=== PATIENT | female | born 1960 | race African-American/Black ===

== ENCOUNTER 2017-01-07 22:27 | Emergency (ER) | payer SELFPAY ==
[2017-01-07] MEDS ORDERED: ASPIRIN 81 MG CHEW TAB ONE (22:37)
[2017-01-07] MEDS ORDERED: ASPIRIN 81 MG CHEW TAB PO ONE (22:45)
[2017-01-07 23:01] LABS: BASOPHILS % 1.2 (0.0-1.5); EOSINOPHILS % 3.4 % (0.0-6.8); MEAN CORPUSCULAR HEMOGLOBIN 31.1 pg (28.0-34.0); MEAN CORPUSCULAR VOLUME 98.9 fl (80.0-100.0); MONOCYTES % 4.5 % (0.0-11.0); NEUTROPHILS # 5.1 # k/uL (1.4-7.7)
[2017-01-07] MEDS ORDERED: NITROGLYCERIN 0.4 MG TAB.SUBL SL ONE (23:14)
[2017-01-07] MEDS ORDERED: LORazepam 2 MG/ML VIAL IVP ONE ×2 (23:14→23:17)
[2017-01-07] MEDS ORDERED: LORazepam 2 MG/ML VIAL ONE (23:14)
[2017-01-07 23:15] LABS: eGFR (African) > 60; eGFR (Non-African) > 60
[2017-01-08] MEDS ORDERED: IPRATROPIUM/ALBUTEROL SULFATE 3 ML AMPUL.NEB NEB ONE (01:35)
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
[2017-01-08 02:27] VITALS: BP 116/86
--- NOTE | 2017-01-08 06:50 | Diagnostic Imaging Report ---
CARMENZA TOPETE~ [facility] [address] [facility].[address] [address] ~ ~ ~ ~ Report Submission Date: Jan 07, 2017 11:27:38 PM CDT Patient ~ Study Name: MARGARITO HOLLIS ~ Date: Jan 07, 2017 11:11:59 PM CDT ~ Modality Type: CR Gender: F ~ Description: CHEST : 60 ~ Institution: [facility] Physician: CARMENZA TOPETE ~ ~ ~ ~ Portable chest History: Left chest and arm pain Findings: The lungs are clear. No pleural effusions are observed. Heart size and pulmonary vascularity are normal. Osseous structures are grossly intact. Impression: Normal portable chest. ~ Electronically signed on Jan 07, 2017 11:27:38 PM CDT by: Trace BRIGHT
== END 2017-01-08 01:55 | disposition home or self-care (01) ==
LOC: ED 22:27
DX: R07.89 Other chest pain (principal); I10 Essential (primary) hypertension
CPT/HCPCS: 71010; 80053; 82550; 84484; 85025; 93005; J2060; 99283; S1016

== ENCOUNTER 2018-02-26 23:02 | Emergency (ER) | payer SELFPAY ==
--- NOTE | 2018-02-26 23:09 | ED Physician Documentation ---
General Adult - HISTORIAN Historian: patient - HPI Stated Complaint: left knee swelling and pain Chief Complaint: Lower Extremity Problem Onset: days ago (3) Timing: still present Severity: mild Further Comments: yes (She states three days ago she started to notice the pain in her left knee - denies any injury or other complications. She states she then started to have increasing pain along the lateral side tonight. She has not tried any Ice, or OTC meds for the pain. She did not try elevation. She has no other complaints although she states when she goes to lift her leg it hurts in her back (along the left lateral side) No loss of control of bowel or bladder ) - ROS CONST: no problems CVS/RESP: denies: chest pain, shortness of breath, cough GI/: denies: abdominal pain MS/SKIN/LYMPH: joint pain, leg swelling (left knee ). denies: calf pain NEURO/PSYCH: denies: headache, fainting - PAST HX Past History: none Other History: none Surgeries/Procedures: hysterectomy, other (arm ortho ) Immunizations: referred to PCP Allergies/Adverse Reactions: Allergies Allergy/AdvReac Type Severity Reaction Status Date / Time Penicillins Allergy Intermediate Hives Verified 02/26/18 23:10 lisinopril Allergy Verified 02/26/18 23:10 codeine AdvReac Intermediate Dizziness Verified 02/26/18 23:10 Home Medications: Ambulatory Orders Medication Instructions Recorded NK [NK] 02/26/18 - SOCIAL HX Smoking History: non-smoker Alcohol Use: none Drug Use: none - FAMILY HX Family History: No - VITAL SIGNS Vital Signs: Vital Signs Temp Pulse Resp BP Pulse Ox 116/86 01/08/17 01:55 - REVIEWED ASSESSMENTS Nursing Assessment Reviewed: Yes Vitals Reviewed: Yes ED Results Lab/Radiology - Radiology Radiology Impressions: Three views of the left knee Clinical history: Pain for 3 days. Swelling. Findings: Examination of the left knee in AP, lateral and sunrise views demonstrates degenerative changes with narrowing of the joint space worse medially. There are medial and lateral osteophytes and prominence of the tibial spines. There is no evident fracture or joint effusion. Impression: 1. Degenerative changes. Electronically signed on Feb 26, 2018 11:48:44 PM CDT by: Felix Ramirez General Adult Physical Exam - PHYSICAL EXAM GENERAL APPEARANCE: no distress EENT: eye inspection normal NECK: normal inspection RESPIRATORY: no resp distress, chest non-tender, breath sounds normal CVS: reg rate & rhythm, heart sounds normal, equal pulses, no murmur ABDOMEN: soft, no organomegaly, normal bowel sounds, no distension, non-tender BACK: normal inspection, no CVA tenderness SKIN: warm/dry, normal color EXTREMITIES: non-tender, other (left knee with swelling. No remarkable redness noted. No pain with flexion of foot. No observed abnormalities with calf or posterior knee. Pain with palpation on right lateral side of left knee. She describes pain with leg abduction on left lower back . ) NEURO: oriented X3, CN's nml as tested, motor nml, sensation nml, mood/affect nml, cognition normal Discharge Clincal Impression: Left knee pain Qualifiers: Chronicity: acute Qualified Code(s): M25.562 - Pain in left knee Referrals: Carina Ahuja MD [Primary Care Provider] - 2 Days Additional Instructions: 1. Ibuprofen or Tylenol as directed for pain 2. Elevate with Ice 3. Monitor for increased swelling or pain - return to ER 4. contact PCP in AM for follow up - possible MRI or ortho referral 5. Return to ER for further concerns Condition: Stable Disposition: 01 HOME, SELF-CARE Decision to Admit: NO Date of Decison to Admit: 02/27/18 Decision Time: 00:02
[2018-02-26 23:30] LABS: BASOPHILS % 0.7 (0.0-1.5); EOSINOPHILS % 3.2 % (0.0-6.8); MEAN CORPUSCULAR HEMOGLOBIN 31.4 pg (28.0-34.0); MEAN CORPUSCULAR VOLUME 98.3 fl (80.0-100.0); MONOCYTES % 4.8 % (0.0-11.0); NEUTROPHILS # 3.6 # k/uL (1.4-7.7)
[2018-02-26 23:46] LABS: eGFR (African) > 60; eGFR (Non-African) > 60
[2018-02-27] MEDS: KETOROLAC TROMETHAMINE 60 MG/2 ML VIAL IM ONE (00:05)
[2018-02-27] MEDS: methylPREDNISolone ACETATE 40 MG/ML VIAL IM ONE (00:05)
[2018-02-27 00:51] VITALS: BP 138/72
--- NOTE | 2018-02-27 06:59 | Diagnostic Imaging Report ---
SHANIQUA MOTT [facility] [address] [facility] [address] [address] Report Submission Date: Feb 26, 2018 11:48:44 PM CDT Patient Study Name: MARGARITO HOLLIS Date: Feb 26, 2018 11:29:54 PM CDT Modality Type: DX Gender: F Description: LOWER EXTREMITY : 60 Institution: [facility] Physician: SHANIQUA MOTT Three views of the left knee Clinical history: Pain for 3 days. Swelling. Findings: Examination of the left knee in AP, lateral and sunrise views demonstrates degenerative changes with narrowing of the joint space worse medially. There are medial and lateral osteophytes and prominence of the tibial spines. There is no evident fracture or joint effusion. Impression: 1. Degenerative changes. Electronically signed on Feb 26, 2018 11:48:44 PM CDT by: Felix BRIGHT
== END 2018-02-27 00:10 | disposition home or self-care (01) ==
LOC: ED 23:02
DX: M25.562 Pain in left knee (principal)
CPT/HCPCS: 73562; 80053; 85025; J1030; J1885; 96372; 99284